=== PATIENT | female | born 1940 | race American Indian/Alaskan Native ===

== ENCOUNTER 2023-08-17 15:46 | Outpatient (CLI) | payer MEDICARE, SELFPAY | END 2023-08-17 15:47 | disposition home or self-care (01) | LOC: AMB 08-21 18:07 | PROVIDERS: PCP Family Medicine; Visit Provider Family Medicine | DX: F41.9 Anxiety disorder, unspecified (principal) | CPT/HCPCS: A0425; A0427 ==

== ENCOUNTER 2023-08-17 16:30 | Emergency (ER) | payer MEDICARE, SELFPAY ==
[2023-08-17 16:46] VITALS: BP 156/102; PULSE 68; RESP 18; TEMP 36.3; O2SAT 100
[2023-08-17] MEDS: LORazepam 1 MG TABLET 0.5 MG PO (17:20)
[2023-08-17 18:22] VITALS: BP 156/102; PULSE 68; RESP 18; TEMP 36.3
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
[2023-08-17 18:34] VITALS: RESP 14; O2SAT 97
== END 2023-08-17 18:38 | disposition home or self-care (01) ==
PROVIDERS: Emergency Provider Emergency Medicine; PCP Family Medicine
DX: F41.9 Anxiety disorder, unspecified (principal); F43.0 Acute stress reaction
CPT/HCPCS: 99283; 99284; A9270